=== PATIENT | female | born 1985 | race Caucasian/White ===

== ENCOUNTER 2018-11-18 13:50 | Emergency (ER) | payer BC, OTHER ==
[~2018-11-18] VITALS: Ht 167.6 cm; Wt 101.7 kg
[~2018-11-18 13:50] MED LIST: ONDA4TAB10 PO
[2018-11-18] MEDS ORDERED: KETOROLAC 30 MG/1 ML ONE (15:09)
[2018-11-18] MEDS ORDERED: METOCLOPRAMIDE 5 MG/ML, 2ML ONE (15:09)
[2018-11-18] MEDS ORDERED: KETOROLAC 30 MG/1 ML IVPush ONE (15:30)
[2018-11-18] MEDS ORDERED: SODIUM CHLORIDE FLUSH 10ML SYR IVF ONE (15:30)
[2018-11-18] MEDS ORDERED: METOCLOPRAMIDE 5 MG/ML, 2ML IVPush ONE (15:30)
[2018-11-18 16:23] VITALS: BP 105/67
== END 2018-11-18 16:32 | disposition home or self-care (01) ==
LOC: ED 15:32
DX: G43.011 Migraine without aura, intractable, with status migrainosus (principal); J18.0 Bronchopneumonia, unspecified organism
CPT/HCPCS: 71045; 96374; 96375; 99283; J1885; J2765

== ENCOUNTER → 2020-12-22 | Outpatient (CLI) | payer OTHER | END | disposition home or self-care (01) | LOC: CFH 09:55 | PROVIDERS: ATTEND Family Medicine | DX: M79.18 Myalgia, other site (principal) | CPT/HCPCS: 93970 ==